=== PATIENT | female | born 1980 | race Asian ===

== ENCOUNTER → 2017-05-23 | Outpatient (CLI) | payer OTHER | END | disposition home or self-care (01) | LOC: CDC 12:35 | DX: O09.90 Supervision of high risk pregnancy, unspecified, unspecified trimester (principal); O24.319 Unspecified pre-existing diabetes mellitus in pregnancy, unspecified trimester | CPT/HCPCS: 93000 ==

== ENCOUNTER 2017-06-12 11:51 | Outpatient (CLI) | payer OTHER ==
[2017-06-12 12:16] VITALS: BP 125/71
[2017-06-12 13:09] LABS: HEMATOCRIT 36.1 % (36.0-46.0); HEMOGLOBIN 11.8 G/DL (11.9-15.5); MCH 28.3 PG (29.0-34.0); MCHC 32.7 G/DL (30.0-36.0); MCV 86.6 FL (83-99); RBC DIS.WIDTH-SD 46.2 % (39-53); RED BLOOD COUNT 4.17 M/uL (3.80-5.20); WHITE BLOOD COUNT 8.6 K/uL (4.1-10.2)
[2017-06-12 13:10] LABS: BASOPHIL (%) 0.3 % (0-1); EOSINOPHIL (%) 1.2 % (0-5); EOSINOPHIL COUNT 0.1 K/uL (0-0.3); IMMATURE GRANULOCYTE (%) 0.5 % (0.0-0.7); LYMPHOCYTE (%) 13.4 % (15-42); LYMPHOCYTE COUNT 1.2 K/uL (1.0-2.8); MONOCYTE (%) 6.3 % (3-12); MONOCYTE COUNT 0.5 K/uL (0-0.8); NEUTROPHIL (%) 78.3 % (45-76); NEUTROPHIL COUNT 6.7 K/uL (1.8-6.4); PLATELET COUNT 200 K/uL (156-360); RBC DIS.WIDTH-CV 14.6 % (11.8-14.6)
[2017-06-12 16:04] VITALS: BP 115/59
[2017-06-12] MEDS ORDERED: GLYBURIDE2.5 MG PO (19:25)
[2017-06-12] MEDS ORDERED: ASPIR 8181 M1 PO (19:26)
[2017-06-12 20:12] VITALS: BP 116/72
[2017-06-12 20:15] VITALS: BP 127/71
[2017-06-12 20:32] VITALS: BP 115/67
[2017-06-12 21:01] VITALS: BP 134/70
[2017-06-12 22:05] LABS: BENZODIAZEPINES, URINE SCREEN Negative (200 ng/mL)
== END 2017-06-12 21:29 | disposition short-term general hospital (02) ==
LOC: LDRP-OP → EDBD → LDRP-OP 11:51 → 2WEST 11:52 → LDRP-OP 09-08 13:10
PROVIDERS: Obstetrics & Gynecology Obstetrics
DX: O44.53 Low lying placenta with hemorrhage, third trimester (principal); O34.219 Maternal care for unspecified type scar from previous cesarean delivery; O09.523 Supervision of elderly multigravida, third trimester; Z3A.31 31 weeks gestation of pregnancy
CPT/HCPCS: 59025; 80306 90; 82948; 85025; 86850; 86900; 86901; G0378; J0702; J3475